=== PATIENT | female | born 1955 | race Caucasian/White ===

== ENCOUNTER 2020-11-18 14:45 | Day surgery (SDC) | payer MEDICARE ==
[2020-11-18] MEDS ORDERED: Decadron 4 MG INJ IV ONE (14:46)
[2020-11-18] MEDS ORDERED: Depo-Medrol 40 MG/ML IM ONE (14:46)
[2020-11-18] MEDS ORDERED: Lactated Ringers 1,000 ML IV ONE (15:37)
--- NOTE | 2020-11-18 17:03 | XRAY ---
22 seconds fluoroscopy time in surgery for left L4-S1 transforaminal JED.
--- NOTE | 2020-11-20 09:27 | XRAY ---
Indication: Left L4-S1 transforaminal JED. Intraoperative fluoroscopy was provided for 22 seconds. 4 digital spot images submitted for interpretation demonstrate posterior needle tips projected over the expected course of the left L4 and L5 nerve roots. A small amount of contrast has been injected for needle tip placement. Correlate with intraoperative findings/report.
== END 2020-11-18 16:27 | disposition home or self-care (01) ==
LOC: SDC-PAIN 14:45
PROVIDERS: ATTEND Psychiatry & Neurology Pain Medicine
DX: M54.16 Radiculopathy, lumbar region (principal); Z79.899 Other long term (current) drug therapy
CPT/HCPCS: 64483; 64484; 72100; 77003; J1030; J1100; Q9966